=== PATIENT | male | born 1975 | race Caucasian/White ===

== ENCOUNTER 2018-06-07 16:52 | Emergency (ER) | payer MEDICAID, SELFPAY ==
[2018-06-07] VITALS (7 sets, daily range): BP systolic 103–112; BP diastolic 63–81; PULSE 75–126; RESP 16–21; TEMP 37.1; O2SAT 97–99; BMI 27.8
--- NOTE | 2018-06-07 17:23 | EKG12_ITS ---
Test Reason : AFIB Blood Pressure : / mmHG Vent. Rate : 123 BPM Atrial Rate : 208 BPM P-R Int : 000 ms QRS Dur : 084 ms QT Int : 286 ms P-R-T Axes : 000 058 063 degrees QTc Int : 409 ms Atrial fibrillation with rapid ventricular response with premature ventricular or aberrantly conducte d complexes Abnormal ECG Confirmed by CHRISTOPHER ARMSTRONG, NICOLE ([id number]), technical editor MONICA WEAVER ([id number]) on 06/13/2018 4:24:59 PM Referred By: SHALONDA Confirmed By:NICOLE WHITE MD
[2018-06-07] MEDS: 0.9% Normal Saline 1,000 ML 1000 ML IV (17:44)
[2018-06-07 17:51] LABS: Absolute Neutrophil Count 5.7 X10^3/uL (2.0-7.7); Basophil# 0.02 X10^3/uL; Basophil% 0.2 % (0-1); Eosinophil# 0.07 X10^3/uL; Eosinophils% 0.9 % (0-5); Hematocrit 39.5 % (40-54); Lymphocyte % 19.6 % (19-41); Mean Corp Hgb Conc 32.9 g/gl (32-36); Mean Corpuscular Hgb 27.5 pg (27.0-32.0); Mean Corpuscular Volume 83.7 fL (80-94); Mean Platelet Vol. 9.8 fl (6.2-12.0); Monocyte# 0.77 X10^3/uL; Monocyte% 9.4 % (0-10); Neutrophil % 69.8 % (47-70); Platelet Count 338 K/mm3 (150-450); RBC Distribution Width CV 14.6 % (11.6-14.6); RBC Distribution Width SD 45.2 fl (35.1-43.9); Red Blood Count 4.72 M/mm3 (4.6-6.2); White Blood Count 8.2 K/mm3 (4.4-11.0)
[2018-06-07 17:54] LABS: POSITIVE COUNT NO; POSITIVE DIFFERENTIAL NO; POSITIVE MORPHOLOGY NO
[2018-06-07] MEDS: dilTIAZem 25 MG/5 ML Vial 20 MG IV BOLUS (17:55)
--- NOTE | 2018-06-07 18:08 | ED.RN ---
pt was talking on the phone with a female. he was loud and agitated. pt was asked to lower his voice and remain calm. pt was asked to get off the phone. pt agreed to then calm down. pt was informed about being pink slipped while officer was present in the room. crisis present to evaluated, but is waiting on medical clearance. carrie riddle rn [id number]
[2018-06-07 18:19] LABS: Anion Gap 9 (5-15); BUN 16 mg/dL (7-18); BUN/Creat Ratio 19.3 RATIO (10-20); Calcium,Total 8.5 mg/dL (8.5-10.1); Chloride 106 mmol/L (98-107); Creatinine, Serum 0.83 mg/dL (0.70-1.30); EST Glomerular Filtration Rate 108 mL/min (>60); Est Glom Filt Rate - Afr Amer 131 mL/min (>60); Estimated Creatinine Clearance 129.69 ml/min; Glucose 133 mg/dL (74-106); Potassium 3.5 mmol/L (3.5-5.1); Sodium Level 143 mmol/L (136-145)
--- NOTE | 2018-06-07 18:39 | CM.ED ---
SOCIAL WORK NOTE DISCUSSED WITH PHYSICIAN WHO FEELS PT WILL REQUIRE PLACEMENT AND CRISIS HAS BEEN CONSULTED. Lauren Gutierres RAIL SIGNAL DESIGNER, ZACH
--- NOTE | 2018-06-07 18:44 | ED.DCSUM_ITS ---
- ER Visit Summary Date of Service: 06/07/18 Chief Complaint: Auditory hallucinations History of Present Illness: The patient is a 43 M who lives in [place]. He reports he was admitted to [facility] 1 week ago for psychosis. States that he was given a prescription for Risperdal and he has not gotten this filled. He reports I have a message from God that I need to spread. States that he has had auditory hallucinations for approximately 1 month. He denies any suicidal or homicidal ideation. Physical Examination: Vitals: 98.8, 110/76, 104, 16, 99% on room air which is not hypoxic. General: Well-nourished and well-developed. Head: Normocephalic atraumatic. Neck: Supple, no lymphadenopathy. No JVD. Nontender. Cardiovascular: Irregular tachycardic rhythm. No murmurs. Respiratory: No respiratory distress. Clear to auscultation bilaterally. Abdominal: Soft, nontender, nondistended, normal bowel sounds. No guarding, rebound, or peritoneal signs. Back: Nontender. Extremities: Nontender, no edema. Skin: Normal color, no rash. Neurologic: Alert and oriented ?3. Cranial nerves II through XII are intact. Normal strength and sensation. Psych: Normal affect. Test Results: EKG is atrial fibrillation rate of [address] [place]. There is no old EKG for comparison. Troponin is negative. Chem-7 shows a glucose of 133. CBC shows a hematocrit of 39.5. Emergency Department Course and Treatment: Patient was given a dose of Cardizem IV. He is resting comfortably. Treatment Plan: The patient was discussed with the counseling center. He will be transferred to a psychiatric facility. Disposition: Pending Impression: 1. Auditory hallucinations. 2. Atrial fibrillation with RVR. This note was generated with [employer] dictation software. It may contain incorrect words, spelling, and punctuation that were not noted in review of the chart prior to signing ED Disposition - Plan for ED Patient: Referrals: Rene Doctor,Out of [Primary Care Provider] -
[2018-06-07 20:16] LABS: Amphetamine Urine VISTA POSITIVE (<1000 ng/mL); Barbiturate Urine VISTA NEGATIVE (< 200 ng/mL); Benzodiazepine Urine VISTA NEGATIVE (< 200 ng/mL); Cocaine Urine VISTA NEGATIVE (< 300 ng/mL); Ecstacy Urine VISTA NEGATIVE (< 500 ng/mL); Methadone Urine VISTA NEGATIVE (< 300 ng/mL); PCP Urine VISTA NEGATIVE (< 25 ng/mL); THC Urine VISTA NEGATIVE (< 50 ng/mL); Vista UDS pH Range 6
[2018-06-08] VITALS (18 sets, daily range): BP systolic 92–198; BP diastolic 64–125; PULSE 96–129; RESP 11–22; O2SAT 95–99
--- NOTE | 2018-06-08 00:56 | EKG12_ITS ---
Test Reason : MENTAL HEALTH Blood Pressure : / mmHG Vent. Rate : 102 BPM Atrial Rate : 227 BPM P-R Int : 000 ms QRS Dur : 076 ms QT Int : 382 ms P-R-T Axes : 000 034 049 degrees QTc Int : 497 ms Atrial fibrillation with rapid ventricular response with premature ventricular or aberrantly conducte d complexes Abnormal ECG Confirmed by CHRISTOPHER ARMSTRONG, NICOLE ([id number]), graphics editor MONICA WEAVER ([id number]) on 06/13/2018 4:28:23 PM Referred By: ANAID Confirmed By:NICOLE WHITE MD
[2018-06-08 01:33] LABS: AST(SGOT) 11 U/L (15-37); Alanine Aminotransfer ALT/SGPT 23 U/L (16-61); Albumin, Serum 3.8 g/dL (3.2-5.0); Alkaline Phosphatase 84 U/L (45-117); Bilirubin, Direct 0.11 mg/dL (0.00-0.30); Globulin 3.3 g/dL (2.2-4.2); Protein, Total 7.1 g/dL (6.4-8.2)
[2018-06-08 05:59] LABS: T4 Total, Thyroxin 8.9 ug/dL (4.5-12.1); Thyroid Stim Hormone (TSH) 1.41 uIU/mL (0.358-3.74)
[2018-06-08 08:09] LABS: T3 Total - Triiodothyronine 1.13 ng/mL (0.6-1.81)
[2018-06-08] MEDS: dilTIAZem 25 MG/5 ML Vial 20 MG IV BOLUS (08:23)
[2018-06-08] MEDS: dilTIAZem CD 120 MG Capsule PO (09:24)
[2018-06-08] MEDS: Pantoprazole Sodium 20 MG Tablet PO (09:24)
[2018-06-08] MEDS: Rivaroxaban 20 MG Tablet PO (09:24)
[2018-06-08] MEDS: dilTIAZem 25 MG/5 ML Vial IV BOLUS (10:24)
[2018-06-08] MEDS: Carvedilol 3.125 MG TABLET PO (10:40)
--- NOTE | 2018-06-08 13:59 | ED.RN ---
PT CARE TAKEN BACK OVER 1300 TODAY. WHILE GIVING BEDSIDE REPORT PT STATED I WILL NOT GO TO [facility]. I WILL LEAVE AND FIGHT IF I NEED TO. PT WAS INFORMED THAT WE HAVE NO CHOICE. HE STATED THAT MY SISTER IS COMING AND WILL TAKE ME HOME. I INFORMED THE PATIENT THAT I WOULD TRY TO HAVE CRISIS RE-EVALUATE HIM AND SPEAK WITH FAMILY THAT IS PRESENTLY IN THE ROOM. Martin VILLANUEVA, RN [id number]
--- NOTE | 2018-06-08 17:18 | CM.ED ---
SOCIAL WORK NOTE PER NURSING, PATIENT HAS BEEN ACCEPTED TO [facility]. YASMINE LEIVA, CLAIMS COUNSEL, TRUST CLERK.
--- NOTE | 2018-06-08 20:11 | ED.RN ---
PT WAS CALM AND CORPORATIVE FOR TRANSPORT. BELONGING SENT HOME WITH SISTER. PT SHOWING ON S/S OF DISTRESS. Martin VILLANUEVA RN [id number]
== END 2018-06-08 20:13 ==
PROVIDERS: Emergency Medicine; Emergency Provider Emergency Medicine
DX: R44.0 Auditory hallucinations (principal); I48.91 Unspecified atrial fibrillation; K21.9 Gastro-esophageal reflux disease without esophagitis; Z72.0 Tobacco use; Z79.01 Long term (current) use of anticoagulants; Z79.899 Other long term (current) drug therapy; Z86.14 Personal history of Methicillin resistant Staphylococcus aureus infection
CPT/HCPCS: 80048; 80076; 80307; 80320; 84436; 84443; 84480; 84484; 85025; 93005; 96361; 96374; 96376; 99285; J7030; A4216; G0480

== ENCOUNTER 2018-08-16 10:08 | Emergency (ER) | payer MEDICAID, SELFPAY ==
[2018-06-07 16:53] VITALS: BMI 27.8
[2018-08-16 10:09] VITALS: BP 97/73; PULSE 79; RESP 16; TEMP 36.3; O2SAT 97; BMI 30.3
--- NOTE | 2018-08-16 10:23 | ED.VISSUMM ---
- ER Visit Summary Date of Service: 08/16/18 Chief Complaint: Dental pain History of Present Illness: The patient is a 43 M with no primary care physician or dentist. He reports that he has pain in his left lateral maxillary incisor that began 3 days ago. However, he reports that the tooth broke off quite some time ago. He reports the pain is a sharp pain that is 9 out of 10 with eating or hot/cold temperatures. Is 7 out of 10 after salt water. Patient reports that he has a history of atrial fibrillation that he had palpitations earlier today, but they are starting to calm down. He states that these come and go. He denies any chest pain or shortness of breath. His review of systems otherwise negative. Physical Examination: Vitals: Stable. Afebrile. Mouth: No trismus. No edema of the floor of the mouth. Pain with percussion of left maxillary lateral incisor which is broken off at the gumline. No focal abscess. No facial swelling. General: A&O x 3. NAD. Cardiovascular exam: Irregular rhythm, no murmur, rub or gallop. Respiratory exam: Clear to auscultation bilaterally. No wheezes or stridor. Abdominal exam: Soft, nontender, nondistended, normal bowel sounds. No peritoneal signs. Extremity: No clubbing, cyanosis, or edema. Test Results: EKG is A. fib at 93 with no acute changes. Emergency Department Course and Treatment: Patient is already treated for his atrial fibrillation. He is on Xarelto, diltiazem, and Coreg. He was given penicillin and Tylenol for his dental pain. Treatment Plan: Patient will be discharged instructions to follow-up with his dentist as soon as possible. He is given a list of local dentist. He will be placed on penicillin at home. Return to the emergency department for any worsening symptoms. Disposition: To home in improved and stable condition. Impression: 1. Dental pain. 2. Atrial fibrillation. This note was generated with [employer] dictation software. It may contain incorrect words, spelling, and punctuation that were not noted in review of the chart prior to signing ED Disposition - Plan for ED Patient: Disposition: Home or Assisted Living Instructions: Dental Pain Prescriptions: Penicillin V Potassium 500 mg PO 4X/DAY #40 tab Prescription Printed Referrals: Dentist,Your [STAFF PHYSICIAN] - As soon as possible
--- NOTE | 2018-08-16 10:27 | EKG12_ITS ---
Test Reason : PALPS Blood Pressure : / mmHG Vent. Rate : 093 BPM Atrial Rate : 108 BPM P-R Int : 000 ms QRS Dur : 086 ms QT Int : 366 ms P-R-T Axes : 000 015 045 degrees QTc Int : 455 ms Atrial fibrillation Abnormal ECG Confirmed by RADHA JOHNS ([id number]), manuscript editor PATIENCE BELLAMY ([id number]) on 08/22/2018 10:28:41 AM Referred By: SHALONDA Confirmed By:RADHA JOHNS
[2018-08-16] MEDS: Penicillin Vk 250 MG Tablet 500 MG PO (10:40)
[2018-08-16] MEDS: Acetaminophen 500 MG Tablet 1000 MG PO (10:41)
== END 2018-08-16 11:05 | disposition home or self-care (01) ==
PROVIDERS: Emergency Provider Emergency Medicine
DX: K08.89 Other specified disorders of teeth and supporting structures (principal); I48.91 Unspecified atrial fibrillation; K21.9 Gastro-esophageal reflux disease without esophagitis; Z72.0 Tobacco use; Z79.02 Long term (current) use of antithrombotics/antiplatelets; Z79.899 Other long term (current) drug therapy
CPT/HCPCS: 93005; 99283

== ENCOUNTER 2018-08-18 09:16 | Emergency (ER) | payer MEDICAID, SELFPAY ==
[2018-08-18 09:17] VITALS: BP 110/71; PULSE 102; RESP 16; TEMP 36.6; O2SAT 96; BMI 30.4
--- NOTE | 2018-08-18 09:33 | EKG12_ITS ---
Test Reason : HX OF AFIB Blood Pressure : / mmHG Vent. Rate : 097 BPM Atrial Rate : 220 BPM P-R Int : 000 ms QRS Dur : 088 ms QT Int : 320 ms P-R-T Axes : 000 012 031 degrees QTc Int : 406 ms Atrial fibrillation Abnormal ECG Confirmed by KRISTYN ARMSTRONG, JO ANN ([id number]), design editor PATIENCE BELLAMY ([id number]) on 08/22/2018 11:17:19 AM Referred By: GERALDINE Confirmed By:RENE SIMONS MD
--- NOTE | 2018-08-18 09:35 | ED.DCSUM_ITS ---
- ER Visit Summary Date of Service: 08/18/18 Chief Complaint: Palpitations, dizziness, suicidal ideation History of Present Illness: The patient is a 43 M who comes in today with the initial complaints of dizziness and palpitations. He believes that he is in atrial fibrillation. Whenever he does go into A. fib he feels this way. He felt dizzy and lightheaded like he was going to pass out. He did have some chest tightness with shortness of breath. The symptoms are worse with exertion. He has normally in sinus rhythm but does have a history of atrial fibrillation. He is on Coreg and Xarelto. He then told the nurse that he was pretty suicidal yesterday. He had no action or plan. He does have a history of suicidal ideation and tried to kill himself by pulling the trigger on a gun to his head that did not go off. Physical Examination: Vital signs are reviewed. HEENT exam unremarkable. Heart is irregularly irregular without murmurs. Lungs are clear. Abdomen is soft and nontender. Extremities have no edema. His neurologic exam is normal. He does have a flat affect and looks depressed. He does have suicidal ideations. Test Results: EKG is A. fib with rate of 97. No ST changes. Heart rate will go up in the 110s. Laboratory studies are unremarkable except for glucose of 130 and hemoglobin 11.8. Tox screen reveals amphetamines. Alcohol negative Emergency Department Course and Treatment: The patient was given 20 mg of Cardizem. His heart rate came down into the 70s but still in atrial fibrillation. He is on anticoagulation and a rate control medication at home so I feel that this is acceptable. He feels much better. The patient was evaluated by the social sciences lecturer. He has not actively suicidal but stated that if he were to he would not mind if it were to happen. She was able to set him up with an appointment with behavioral health on Wednesday. We interviewed the patient again and he does not have an active plan at this time. Treatment Plan: [] Disposition: Discharge Impression: Atrial for ablation with RVR, depression This note was generated with [employer] software. It may contain incorrect words, spelling, and punctuation that were not noted in review of the chart prior to signing ED Disposition - Plan for ED Patient: Disposition: Home or Assisted Living Instructions: Atrial Fibrillation Referrals: Care Physician,No Primary [Primary Care Provider] -
[2018-08-18] MEDS: 0.9% Normal Saline 1,000 ML 1000 ML IV (09:52)
[2018-08-18] MEDS: dilTIAZem 25 MG/5 ML Vial 20 MG IV BOLUS (10:00)
[2018-08-18 10:11] LABS: Absolute Neutrophil Count 4.3 X10^3/uL (2.0-7.7); Basophil# 0.01 X10^3/uL; Basophil% 0.2 % (0-1); Eosinophil# 0.12 X10^3/uL; Eosinophils% 2.1 % (0-5); Hematocrit 35.7 % (40-54); Hemoglobin 11.8 g/dl (13.0-16.5); Lymphocyte % 17.2 % (19-41); Mean Corp Hgb Conc 33.1 g/gl (32-36); Mean Corpuscular Volume 84.6 fL (80-94); Mean Platelet Vol. 9.6 fl (6.2-12.0); Monocyte% 6.9 % (0-10); Neutrophil # 4.29 X10^3/uL (2.7-7.7); Neutrophil % 73.4 % (47-70); Platelet Count 248 K/mm3 (150-450); RBC Distribution Width CV 14.3 % (11.6-14.6); RBC Distribution Width SD 44.4 fl (35.1-43.9); Red Blood Count 4.22 M/mm3 (4.6-6.2); White Blood Count 5.8 K/mm3 (4.4-11.0)
[2018-08-18 10:17] LABS: POSITIVE COUNT NO; POSITIVE DIFFERENTIAL NO; POSITIVE MORPHOLOGY NO
[2018-08-18 10:32] LABS: AST(SGOT) 6 U/L (15-37); Alanine Aminotransfer ALT/SGPT 16 U/L (16-61); Albumin, Serum 3.3 g/dL (3.2-5.0); Alkaline Phosphatase 71 U/L (45-117); Anion Gap 7 (5-15); BUN 17 mg/dL (7-18); BUN/Creat Ratio 21.1 RATIO (10-20); Calcium,Total 8.3 mg/dL (8.5-10.1); Chloride 108 mmol/L (98-107); EST Glomerular Filtration Rate 111 mL/min (>60); Est Glom Filt Rate - Afr Amer 135 mL/min (>60); Estimated Creatinine Clearance 134.55 ml/min; Globulin 3.4 g/dL (2.2-4.2); Glucose 130 mg/dL (74-106); Potassium 3.8 mmol/L (3.5-5.1); Protein, Total 6.7 g/dL (6.4-8.2); Sodium Level 140 mmol/L (136-145)
--- NOTE | 2018-08-18 10:45 | CM.ED ---
Addendum entered by Beba Cisneros 08/18/18 15:05: Note: Did also discuss with patient transportation option for appointment to Behavioral Health on Wednesday, transportation set up with [facility] transportation. Patient agreeable to this plan. This social sciences research scientist providing patient with written reminder for appointment and transportation options for patient along with information about crisis hotline. Original Note: Social Work Referral: Mental Health/Suicidal Informant: Nursing, patient, Dr. Davis, and chart. Chief Complaint: Patient reporting to have had a racing heart rate. Patient reporting to be feeling down lately. Patient reporting to have recently (1 week ago) ended a relationship with girlfriend that left patient homeless. Marital/Social History: Single Living Situation: Homeless and currently staying at the [facility]. Patient reporting to need to meed with [facility] to begin working on housing but to believe to have missed an appointment with [facility] yesterday. Patient agreeable to this social sciences research scientist contacting [facility] to see if a later appointment can be set up. Employment Hx: Currently unemployed. Patient reporting to have had a job interview at 11:00am today, it is now 10:45am, patient will miss interview. Patient reporting to have missed interviews in the past due to transportation issues. Transportation: Patient primarily utilizes [employer] and has vouchers through [employer]. This social sciences research scientist also educating patient on transportation option through patient insurance, [employer]. Mental Health Treatment/Hx: Per chart review patient has a history of inpatient psychiatric stay at [facility]. Patient reporting to have a history of depression and anxiety. Patient reporting to currently manage mental health with Risperdal but to not have any medication at this time due to not being able to make it to appointment with Dr. Vera at [facility] due to transportation issue. Patient reporting to have had counseling appointments set up with [facility] but to have not been able to make any due to transportation issues. 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 Patient stating it has been months. Mental Status: Patient alert and oriented x3 during assessment. Appearance/General Behavior: Patient appearing calm during conversation. Patient reporting to be tired due to panic attack which is patients main complaint for coming to the hospital. Patient affect appropriate and initiated conversation with this social sciences research scientist. Patient engaged in conversation. Comments: Collaborated with patient on safety plan to home. Patient denies any current thoughts or plans of suicide. Patient does admit to having suicidal thoughts in the past but, denies any suicidal thoughts in the past month or currently. Patient presenting with passive thoughts of dying, such as: if my heart stops beating that would be okay. Again, patient denies any plan or intent to complete suicide and is able to express reasons to continue with life such as getting a job and putting my life together. Patient reporting that life has been hard lately due to the stressors of being homeless, breaking up with girlfriend, having no job and limited supports. Patient reporting to have no family/friends to turn to in the area. Patient with futuristic thinking stating I want to be able to get my life together. This social sciences research scientist exploring service options for patient. This social sciences research scientist broaching topic of the Behavioral Health Program at [facility]. Patient interested in the Behavioral Health Program and agreeable to this social sciences research scientist making referral. Patient educated on who to call and when if patient finds self in a crisis. Patient educated on deep breathing to manage anxiety/panic attacks in the future. Patient thanking this social sciences research scientist. Patient reporting to be feeling better. Patient stating to feel good about returning to the community on this day. Interventions: Referral to Behavioral Health Program at [facility]. Apt: 08/22/18 @ 2:30 Telephone call to [facility] at [facility], appointment set up for today at 1:00pm. Provided patient with crisis hotline information, if needed. Educated patient on coping skills to manage panic attacks. Dannie SIMS, ZACH
[2018-08-18 10:47] LABS: Bacteria 0 SEEN /hpf (None Seen); Mucous, Urine 0 SEEN /hpf (<or=2+); Red Blood Cells-Urine 0 SEEN /hpf (0-5); Squamous Epithelial Cells - UA 0 SEEN /hpf (0-5); White Blood Cells 0 SEEN /hpf (0-5)
[2018-08-18 10:50] LABS: Color, Urine Yellow (Yellow); Glucose, Dipstick Normal (Normal); Ketone-Dipstick Negative (Negative); Leukocyte Esterase-Dipstick Negative /ul (Negative); Nitrite-Dipstick Negative (Negative); Occult Blood-Urine Negative /ul (Negative); Protein-Dipstick Negative (Negative); Urine Bilirubin Dipstick Negative (Negative); Urine Clarity Clear (Clear); Urine Urobilinogen Normal (Normal)
[2018-08-18 10:51] LABS: Alcohol, Blood (Medical)-Serum < 3.0 mg/dL
[2018-08-18 10:55] VITALS: BP 130/79; PULSE 74; RESP 12; O2SAT 96
[2018-08-18 11:11] LABS: Amphetamine Urine VISTA POSITIVE (<1000 ng/mL); Barbiturate Urine VISTA NEGATIVE (< 200 ng/mL); Benzodiazepine Urine VISTA NEGATIVE (< 200 ng/mL); Cocaine Urine VISTA NEGATIVE (< 300 ng/mL); Ecstacy Urine VISTA NEGATIVE (< 500 ng/mL); Methadone Urine VISTA NEGATIVE (< 300 ng/mL); PCP Urine VISTA NEGATIVE (< 25 ng/mL); THC Urine VISTA NEGATIVE (< 50 ng/mL); Vista UDS pH Range 6
[2018-08-18 11:28] VITALS: BP 97/56; PULSE 79; RESP 9; O2SAT 97
--- NOTE | 2018-08-18 11:40 | ED.DEP ---
ED Disposition - Plan for ED Patient: Disposition: Home or Assisted Living Instructions: Atrial Fibrillation Referrals: Care Physician,No Primary [Primary Care Provider] -
[2018-08-18 11:52] VITALS: BP 105/59; PULSE 94; RESP 17; O2SAT 93
--- NOTE | 2018-08-22 20:39 | CM.ED ---
Social Work Notified from Dc at [facility] that patient did not show up for appointment today. Dc reporting to have called patient and patient stating to be moving out of [place]. Dannie SIMS, ZACH
== END 2018-08-18 11:53 | disposition home or self-care (01) ==
PROVIDERS: Emergency Provider Emergency Medicine
DX: I48.91 Unspecified atrial fibrillation (principal); R45.851 Suicidal ideations; F32.9 Major depressive disorder, single episode, unspecified; Z72.0 Tobacco use; Z79.01 Long term (current) use of anticoagulants; Z79.899 Other long term (current) drug therapy
CPT/HCPCS: 80053; 80307; 80320; 81001; 84484; 85025; 93005; 96374; 96375; 99285; J7030; A4216; G0480